=== PATIENT | female | born 1985 | race Asian ===

== ENCOUNTER 2018-06-02 13:37 | Emergency (ER) | payer MEDICAID, SELFPAY ==
[2018-06-02 13:41] VITALS: BP 94/64; PULSE 73; RESP 16; TEMP 36.6; O2SAT 96
--- NOTE | 2018-06-02 13:55 | NUR.NOTE ---
Nursing Note: Patients primary language is [place]. She refused the language line and requests to use her friend who speaks much better [place]. Answers are appropriate in response to this writers questions.
--- NOTE | 2018-06-02 14:02 | ED.GENADUL ---
Disposition Clinical Impression: Rash, Finger swelling Disposition: HOME Condition: Stable Instructions: Acute Rash (ED) Additional Instructions: Take the steroids until finished. Take Benadryl as needed and directed for any itching. You should receive a call from care management regarding follow-up with a primary care doctor for further evaluation. Return to the emergency department any worsening or new concerning symptoms. Prescriptions: Prednisone 20 mg PO DIRECTED #12 tablet Medical Decision Making - Medical Decision Making 32-year-old female presents with pruritic rash to wrists, forearms and abdomen for the past few days. Thought was due to eating [employer]. She also has left thumb and right fifth finger mild erythema and edema. There is no blue or white discoloration and fingers are not cool to touch making Raynaud's less likely. She denies recent fever or tick bite, making Burke spotted fever less likely. She denies any other new exposures. The rash on the forearms and abdomen appear like fine sandpaper. She also denies fever or sore throat and has normal ENT exam making strep less likely. At this point in time, I am unsure if an oral ingestion allergy could be the cause of symptoms. I am unsure if this is a contact dermatitis or even consideration of a possible arthritis such as rheumatoid arthritis considering the symmetric symptoms in hands. Patient denies any pain in fingers. Patient otherwise appears nontoxic and in no acute distress. Dose of prednisone given here and prescription for home. Patient does not have a primary care doctor. Will place patient on care management list to arrange for follow-up appointment with the primary care doctor for reevaluation in 1 week and for further evaluation of this rash. Patient did not speak Dominican and history was provided with friend who spoke Dominican well. History of Present Illness - General Chief complaint: RashLesion Stated complaint: ALLERGIC REACTION Time Seen by Provider: 06/02/18 13:51 Source: patient Mode of arrival: ambulatory Limitations: no limitations - History of Present Illness Initial comments: Patient is a 32-year-old female who presents with rash on her hands, wrists, and stomach for the past 2 days. States the rash is itchy and she also has left thumb and right pinky redness and swelling. She states she ate a [place] very the night before the symptoms started and is unsure if this is related. She has not tried any medication for her symptoms. She denies throat pain, difficulty swallowing, or difficulty breathing. She denies any other new medications, foods, travel or exposures. - Related Data Prednisone 20 mg PO DIRECTED #12 tablet 06/02/18 Allergies Allergy/AdvReac Type Severity Reaction Status Date / Time No Known Allergies Allergy Unverified 06/02/18 13:49 Review of Systems Constitutional: denies: chills, fever Eyes: denies: eye pain ENT: denies: ear pain, dental pain Respiratory: denies: cough, shortness of breath Cardiovascular: denies: chest pain, dyspnea on exertion Gastrointestinal: denies: abdominal pain, nausea, vomiting Genitourinary: denies: urgency, dysuria, frequency Musculoskeletal: denies: back pain Skin: rash, lesions Neurological: denies: headache, weakness, numbness Past Medical History - Past Medical History Medical history: no medical history Surgical history: - Social History Smoking status: never smoker Alcohol use: none Drug use: none General Exam - General Limitations: no limitations General appearance: alert, in no apparent distress - Eye Eye exam: Present: PERRL, EOMI - ENT ENT exam: Present: normal orophraynx, mucous membranes moist, TM's normal bilaterally - Respiratory Respiratory exam: Present: normal lung sounds bilaterally. Absent: respiratory distress, wheezes, rales, rhonchi, stridor - Cardiovascular Cardiovascular Exam: Present: regular rate, normal rhythm. Absent: bradycardia, tachycardia - GI/Abdominal GI/Abdominal exam: Present: soft, normal bowel sounds. Absent: distended, tenderness, guarding, rebound, rigid - Neurological Exam Neurological exam: Present: alert, oriented X3 - Psychiatric Psychiatric exam: Present: normal affect - Skin Skin exam: Present: other (Tiny punctate fine papular erythematous sandpaper like rash noted to bilateral wrists extending up forearms and abdomen. No rash noted to ankles or legs. She has mild erythema and edema noted to left thumb and right fifth finger. There is no blue or white discoloration to fingers or papules noted on hands.) Course Vital Signs - 24 hr 06/02/18 13:41 Temperature 97.9 F Pulse 73 Respiratory 16 Rate Blood Pressure 94/64 Pulse Oximetry 96
[2018-06-02] MEDS: predniSONE 20 MG TAB 60 MG PO (14:08)
[2018-06-02 14:37] VITALS: BP 98/64; PULSE 72; RESP 16; TEMP 36.7; O2SAT 98
--- NOTE | 2018-06-05 08:32 | PDOC.ERCMPRO ---
Care Management Progress Note 06/05-Dr. Bacon requested assistance with a PCP f/u in one week for body rash. Shannon Oliver PCP. Referral faxed to [facility] am.
== END 2018-06-02 14:36 | disposition home or self-care (01) ==
PROVIDERS: Emergency Provider Physician Assistant; PCP Nurse Practitioner Family
DX: R21 Rash and other nonspecific skin eruption (principal)
CPT/HCPCS: 81025; J7512